=== PATIENT | male | born 1970 | race Caucasian/White ===

== ENCOUNTER 2025-11-03 13:12 | Emergency (ER) | payer OTHER, SELFPAY ==
[2025-11-03] VITALS (7 sets, daily range): BP systolic 106–131; BP diastolic 67–79
[2025-11-03 13:38] LABS: Hematocrit 23.2 % (39.0-52.0); Hemoglobin 7.7 g/dL (13.0-18.0); Mean Corp Hgb Conc. 33.2 g/dL (33.0-37.0); Mean Corpuscular Volume 93.9 fL (80.0-94.0); Nucleated Red Blood Cells % 0.6 % (-); Platelet Count 304 10^3/uL (130-400); Red Cell Dist. Width 18.7 % (11.5-14.5)
[2025-11-03 13:55] LABS: ALT (SGPT) 39 U/L (0-50); AST (SGOT) 30 U/L (17-59); Albumin 4.7 g/dl (3.5-5.0); Alkaline Phosphatase 80 U/L (38-126); Blood Urea Nitrogen 16 mg/dl (9-20); Calcium 9.2 mg/dl (8.4-10.2); Carbon Dioxide 24 mmol/L (22-30); Chloride 109 mmol/L (98-107); Glucose 98 mg/dl (70-99); Potassium 5.1 mmol/L (3.5-5.1); Sodium 139 mmol/L (135-145); Total Protein 7.1 g/dl (6.3-8.2); eGFR > 60.00
--- NOTE | 2025-11-03 14:10 | ED.GENMED ---
History of Present Illness
General
Chief Complaint: Facial Problem
Time Seen by Provider: 11/03/25 13:47
History of Present Illness
History of Present Illness:
55-year-old male presents to the emergency department for evaluation of right facial swelling. He saw his dentist this morning who referred him to the ED for oral and facial surgery evaluation. He has been on clindamycin for 4 total doses thus
far. Denies any fevers, chills, or neck pain.
Past History
Past History
ED Past Medical History: Other (hypertrophic cardiomyopathy)
ED Past Surgical History: None
Social History
Tobacco: Non-smoker
Alcohol: None
Drug: None
Review of Systems
Review of Systems
Allergies reviewed?: Yes
All Other Systems: ROS reviewed and negative except as documented in HPI and ROS
Phy Exam
Physical Exam
Physical Exam:
GEN: Well appearing, NAD, WDWN
HEENT: Oral mucosa moist, no scleral icterus, induration and swelling to the right lower buccal mucosa, no trismus, diffuse right facial swelling noted, no obvious dental caries
Cardiac: Regular rate
Lung: No respiratory distress, no tachypnea
MSK: No gross deformity or injuries
Skin: Good color, no pallor or jaundice, no rashes
Neuro: AO x3, moves all extremities freely
Psych: Calm, cooperative
Course
Orders/Labs/Results
Orders:
Orders
11/03/25 13:31
CBC/With Diff [Complete Blood Count/With Diff] Urgent
CMP [Comprehensive Metabolic Panel] Urgent
11/03/25 14:32
Type+Screen Urgent
11/03/25 15:10
Blood Bank Products [* Blood Bank Products] Urgent
Blood Bank Products: *Packed RBC Leuko (PRBC's
Quantity: 1
Transfuse Today: Yes
Reason: Anemia
11/03/25 17:26
Clindamycin HCl [Cleocin] 300 mg PO NOW STA
Abnormal Lab Results
11/03/25 11/03/25
13:31 14:32
RBC 2.47 L 10^6/uL
(4.70-6.10)
Hgb 7.7 L g/dL
(13.0-18.0)
Hct 23.2 L %
(39.0-52.0)
MCH 31.2 H pg
(27.0-31.0)
RDW 18.7 H %
(11.5-14.5)
MPV 10.5 H fL
(7.4-10.4)
Abs Immat Gran (auto) 0.2 H 10^3/uL
(0-0.05)
Absolute Neuts (auto) 6.6 H 10^3/uL
(1.4-6.5)
Absolute Lymphs (auto) 0.8 L 10^3/uL
(1.2-3.4)
Absolute Monos (auto) 0.8 H 10^3/uL
(0.1-0.6)
Immature Gran % 2.4 H %
(0-0.5)
Neutrophils % 78.2 H %
(42.2-75.2)
Lymphocytes % 9.3 L %
(20.5-51.1)
Chloride 109 H mmol/L
(98-107)
Total Bilirubin 3.1 H mg/dl
(0.2-1.3)
Crossmatch IS Only See Detail
11/03/25 13:31
11/03/25 13:31
Vital Signs
Initial and Last Documented VS:
Initial Vital Signs
Temp Pulse Resp BP Pulse Ox
98.3 F 60 16 131/67 99
11/03/25 13:22 11/03/25 13:22 11/03/25 13:22 11/03/25 13:22 11/03/25 13:22
Last Documented Vital Signs
Temp Pulse Resp BP Pulse Ox
98.8 F 62 16 106/68 99
11/03/25 18:40 11/03/25 18:40 11/03/25 18:40 11/03/25 18:40 11/03/25 18:40
Procedures
Incision/Drainage/Joint Aspiration
R dental abscess:
Anethesia: 1% Lidocaine and 1% Lidocaine with Epi
Type of procedure: incise and drain
Nature of site: abscess
Description of abscess: less than 3cm
Loculations broken up: No
How much fluid was obtained?: small amount
Fluid description: purulent and bloody
Treatment: left open for drainage
MDM/Problems Addressed
MDM/Problems Addressed:
Patient was noted to be anemic off of his baseline, given his hemoglobin below 8 we did give him 1 unit of PRBCs. As far as his dental infection I did perform an incision and drainage with minimal purulent output. Tolerated the procedure quite
well. Will keep him on clindamycin and he was given follow-up for oral and facial surgery which is scheduled for 4 days from now. Will increase his clindamycin and provide opiates for pain
*Pulse Oximetry
SaO2: 99
Patient hypoxic: no
*Critical Care Note
Total Time (30-74mins, 75-104mins- exclusive of procedures): Not Applicable
ED Attending Note
-
Portions of this chart may have been created with voice recognition software.� Occasional wrong word or��sound alike� substitutions may have occurred due to the inherent limitations of voice recognition software.
Discharge Plan
Departure
Patient Disposition: Home (Routine Discharge)
Date of Disposition: 11/03/25
Time of Disposition: 17:25
Patient with high blood pressure during this ER visit?: No
Discharge Problem:
Abscess, dental, Symptomatic anemia, Myelodysplastic syndrome
Instructions: Tooth Abscess (DC)
Prescriptions:
New
oxycodone-acetaminophen [Percocet] 5-325 mg tablet
1 tab PO Q6HPRN PRN (Reason: pain) Qty: 10 0RF
No Action
meclizine 25 MG tablet
25 mg PO Q6HPRN PRN (Reason: vertigo) Qty: 10 0RF
Referrals:
Madhavi Elliott, DMD [Active, Dental]
Madhavi Niño, DO [Family Provider]
Stand Alone Forms: Return to Work
Activity Restrictions/Additional Instructions:
Follow up with the oral/facial surgeons as planned
Increase your clindamycin to FOUR times per day as opposed to three
Interventions
Interventions:
*General Assessment Last Done: 11/03/25 14:30
*Neglect/Abuse Screening Last Done: 11/03/25 14:30
*ED COVID-19 Vaccine History Last Done: 11/03/25 13:19
*ED Influenza Vaccine History Last Done: 11/03/25 13:19
ED- Neurological Assessment Last Done: 11/03/25 14:30
ED-Skin Assessment Last Done: 11/03/25 14:30
Discharge Date and Time
Print Language: NEPALI
[2025-11-03] MEDS: CLEOCIN 300 MG PO (18:38)
== END 2025-11-03 18:57 | disposition home or self-care (01) ==
LOC: EMR 13:12
PROVIDERS: EMERGENCY PHYSICIAN Emergency Medicine; FAMILY PHYSICIAN Family Medicine
DX: K04.7 Periapical abscess without sinus (principal); D46.9 Myelodysplastic syndrome, unspecified; I42.2 Other hypertrophic cardiomyopathy
CPT/HCPCS: 99283; 41800; 36430; 80053; 85025; 86850; 86900; 86901; 86920; P9016